=== PATIENT | female | born 1985 | race African-American/Black ===

== ENCOUNTER 2018-07-29 09:57 | Emergency (ER) | payer MEDICARE ==
[2018-07-29 10:46] LABS: Bilirubin Negative (Negative); Blood, Urine Moderate (Negative); Clarity CLEAR (Clear); Glucose, Urine (Dipstick) Negative (Negative); Leukocyte Negative (Negative); Nitrite Negative (Negative); Protein, Urine (Dipstick) Negative (Neg-Trace); Specific Gravity, Urine 1.016 (1.002-1.036); Urobilinogen 0.2 mg/dL (0.2-1.0)
[2018-07-29 10:49] LABS: Pregnancy Test - Urine (BHCG) Negative (Negative); Pregu Control Background? CLEAR/WHITE (CLR/WHITE); Pregu Control Bar Appear? YES (CONTROL BAR); Specific Gravity 1.016 (1.002-1.036)
[2018-07-29 10:50] LABS: Bacteria/HPF Rare-Few HPF (None Seen); Hyaline Casts/LPF 0-3 HYALINE CAST LPF (0-3 Hyaline); Pathc Cast-AUWi Flag 0.14 (0-2.49); Squamous Epithelial 0-3 HPF (0-3); WBC/HPF 0-3 HPF (0-3)
[2018-07-29] MEDS ORDERED: Ketorolac Tromethamine 60 MG/2 ML VIAL ONE (10:53)
[2018-07-29 10:59] LABS: RBC/HPF 0-3 HPF (0-3)
--- NOTE | 2018-07-29 12:10 | RAD ---
LUMBAR SPINE 3 VIEWS: Date: 07/29/18 HISTORY: Right hip pain. Low back pain. FINDINGS: Lumbar vertebra maintain normal height and alignment. Mild loss of disc space at L5-S1. No evidence o f spondylolisthesis or spondylolysis. IMPRESSION: No evidence of acute abnormality. POS: [facility]
--- NOTE | 2018-07-29 12:16 | RAD ---
RIGHT FEMUR 4 VIEWS: Date: 07/29/18 HISTORY: Pain right upper extremity. FINDINGS: No evidence of fracture. Femoral head and femoral neck appear unremarkable. No osseous abnormality se en. IMPRESSION: No evidence of acute abnormality. POS: [facility]
== END 2018-07-29 13:40 | disposition home or self-care (01) ==
LOC: ERS 09:57
DX: M54.5 Low back pain (principal); M25.551 Pain in right hip; B20 Human immunodeficiency virus [HIV] disease; F31.9 Bipolar disorder, unspecified; F20.9 Schizophrenia, unspecified; F17.210 Nicotine dependence, cigarettes, uncomplicated; Z79.899 Other long term (current) drug therapy
CPT/HCPCS: 72100; 81003; 81015; 81025; 87086; 96372; J1885

== ENCOUNTER 2018-08-31 16:43 | Emergency (ER) | payer MEDICARE ==
[2018-08-31] MEDS ORDERED: Dexamethasone 4 mg/ml Vial ONE (19:10)
[2018-08-31] MEDS ORDERED: Ketorolac Tromethamine 30 MG/ML VIAL ONE (19:13)
--- NOTE | 2018-08-31 19:22 | RAD ---
TWO VIEWS CHEST: Date: 08-31-18 Comparison: 04-29-17 History: Cough and congestion FINDINGS: Heart and mediastinal contours are stable. No pneumothorax, pleural fluid, focal consolidation or asuncion eolar edema. IMPRESSION: No acute findings. POS: [facility]
== END 2018-08-31 19:33 | disposition home or self-care (01) ==
LOC: ERS 16:43
DX: J40 Bronchitis, not specified as acute or chronic (principal); B20 Human immunodeficiency virus [HIV] disease; F31.9 Bipolar disorder, unspecified; F20.9 Schizophrenia, unspecified; F17.210 Nicotine dependence, cigarettes, uncomplicated; Z79.899 Other long term (current) drug therapy
CPT/HCPCS: 71046; 93005; 96372; J1100; J1885

== ENCOUNTER 2018-09-09 17:28 | Emergency (ER) | payer MEDICARE ==
[2018-09-09] MEDS ORDERED: Morphine 10 MG/ML VIAL ONE (18:04)
== END 2018-09-09 18:13 | disposition home or self-care (01) ==
LOC: ERS 17:28
DX: J06.9 Acute upper respiratory infection, unspecified (principal); M54.31 Sciatica, right side; Z71.6 Tobacco abuse counseling; F17.210 Nicotine dependence, cigarettes, uncomplicated; J45.909 Unspecified asthma, uncomplicated; B20 Human immunodeficiency virus [HIV] disease; F31.9 Bipolar disorder, unspecified; F20.9 Schizophrenia, unspecified; Z79.899 Other long term (current) drug therapy
CPT/HCPCS: 96372; 99406; J2270

== ENCOUNTER 2018-09-26 20:03 | Emergency (ER) | payer MEDICARE, MEDICAID ==
[2018-09-26] MEDS ORDERED: Acetaminophen/Codeine 30-300mg Tablet ONE (21:19)
== END 2018-09-26 21:34 | disposition home or self-care (01) ==
LOC: ERS 20:03
DX: G89.29 Other chronic pain (principal); M54.5 Low back pain; F31.9 Bipolar disorder, unspecified; F20.9 Schizophrenia, unspecified; F17.210 Nicotine dependence, cigarettes, uncomplicated; B20 Human immunodeficiency virus [HIV] disease; Z79.899 Other long term (current) drug therapy
CPT/HCPCS: 99283

== ENCOUNTER 2018-10-08 15:08 | Emergency (ER) | payer MEDICARE, MEDICAID ==
[2018-10-08] MEDS ORDERED: HYDROcodone/Acetaminophen 5/325 mg Tablet ONE (16:42)
[2018-10-08 16:51] LABS: Bilirubin Negative (Negative); Blood, Urine Negative (Negative); Clarity CLEAR (Clear); Glucose, Urine (Dipstick) Negative (Negative); Leukocyte Negative (Negative); Nitrite Negative (Negative); Protein, Urine (Dipstick) Negative (Neg-Trace); Specific Gravity, Urine 1.023 (1.002-1.036)
== END 2018-10-08 18:03 | disposition home or self-care (01) ==
LOC: ERS 15:08
DX: G62.9 Polyneuropathy, unspecified (principal); F31.9 Bipolar disorder, unspecified; F20.9 Schizophrenia, unspecified; F17.210 Nicotine dependence, cigarettes, uncomplicated; Z79.899 Other long term (current) drug therapy
CPT/HCPCS: 81003; 87804; 99283

== ENCOUNTER 2018-10-21 18:57 | Emergency (ER) | payer MEDICARE, MEDICAID ==
[2018-10-21] MEDS ORDERED: diphenhydrAMINE 50 MG/ML VIAL ONE (19:36)
[2018-10-21] MEDS ORDERED: methylPREDNISolone Sod Succ/PF 125 MG/2 ML VIAL ONE (19:36)
[2018-10-21] MEDS ORDERED: Famotidine/PF 20 mg/2ml Vial ONE (19:36)
--- NOTE | 2018-10-21 20:39 | ULT ---
RIGHT LOWER EXTREMITY VENOUS DOPPLER WITH SPECTRAL ANALYSIS AND COLOR FLOW EVALUATION: 10/21/18 HISTORY: Right lower extremity pain. FINDINGS: Burris scale, color flow, doppler evaluation, with spectral analysis of the right lower extremity venou s structures is performed with 2D imaging. The right lower extremity common femoral, superficial femo ral, popliteal, posterior tibial most proximal greater saphenous and profunda femoral veins are image d. There is normal lumen compressibility, flow and augmentation in the visualized deep venous structures of the right lower extremity. IMPRESSION: No evidence of a DVT involving the visualized deep venous structures right lower extremity. POS: [facility]
[2018-10-21] MEDS ORDERED: Ketorolac Tromethamine 30 MG/ML VIAL ONE (20:42)
[2018-10-21] MEDS ORDERED: Benztropine Mesylate 2 MG/2 ML VIAL IVP SCH (22:15)
== END 2018-10-21 22:30 | disposition home or self-care (01) ==
LOC: ERS 18:57
DX: G24.09 Other drug induced dystonia (principal); T43.4X5A Adverse effect of butyrophenone and thiothixene neuroleptics, initial encounter; G89.29 Other chronic pain; M79.604 Pain in right leg; F31.9 Bipolar disorder, unspecified; F20.9 Schizophrenia, unspecified; B20 Human immunodeficiency virus [HIV] disease; F17.210 Nicotine dependence, cigarettes, uncomplicated; Z79.891 Long term (current) use of opiate analgesic; Z79.899 Other long term (current) drug therapy; Z79.1 Long term (current) use of non-steroidal anti-inflammatories (NSAID); Z79.82 Long term (current) use of aspirin
CPT/HCPCS: 96374; 96375; J0515; J1200; J1885; J2930; S0028

== ENCOUNTER 2018-10-30 14:54 | Outpatient (CLI) | payer MEDICARE, MEDICAID ==
--- NOTE | 2018-10-30 15:42 | RAD ---
LUMBAR SPINE SERIES THREE VIEWS INCLUDING FLEXION AND EXTENSION: History: Low back pain. FINDINGS: The vertebral bodies appear normal in height. Disc spaces all appear relatively well preserved. There is limited motion in flexion or extension. I do not see any abnormal motion. IMPRESSION: Unremarkable flexion and extension views. POS: [facility]
== END 2018-10-30 14:55 | disposition home or self-care (01) ==
LOC: TBSIIMAG 14:54
PROVIDERS: ATTEND Neurological Surgery
DX: M51.16 Intervertebral disc disorders with radiculopathy, lumbar region (principal)
CPT/HCPCS: 72100

== ENCOUNTER 2018-11-10 23:00 | Emergency (ER) | payer MEDICAID, MEDICARE ==
[2018-11-11] MEDS ORDERED: Ketorolac Tromethamine 60 MG/2 ML VIAL ONE
[2018-11-11 00:15] LABS: #Basophils 0.1 thou/uL (0.0-0.2); #Eosinphils 0.2 thou/uL (0.0-0.7); #Lymphocytes 2.9 thou/uL (1.20-3.40); #Monocytes 0.5 thou/uL (0.11-0.59); #Neutrophils 2.2 thou/uL (1.40-6.50); %Basophils 1.2 % (0.0-1.0); %Eosinophils 3.4 % (0.0-10.0); %Lymphocytes 49.5 % (21.0-51.0); %Monocytes 8.5 % (0.0-10.0); %Neutrophils 37.4 % (42.0-75.0); Hemoglobin 14.3 g/dL (12.0-16.0); Mean Corpuscular HGB CONC 32.9 g/dL (32.0-36.0); Mean Corpuscular Hemoglobin 33.3 pg (27.0-31.0); RBC Distribution Width 12.6 % (11.5-14.5); Red Blood Cell (RBC) Count 4.29 mill/uL (4.20-5.40); White Blood Cell (WBC) Count 5.9 thou/uL (4.8-10.8)
[2018-11-11 00:17] LABS: BHCG - Serum Negative (NEGATIVE); Pregs Control Background? CLEAR/WHITE (CLR/WHITE); Pregs Control Bar Appear? YES (CONTROL BAR)
[2018-11-11 00:17] LABS: Bilirubin Small (Negative); Blood, Urine Negative (Negative); Clarity CLEAR (Clear); Glucose, Urine (Dipstick) 250 mg/dL (Negative); Leukocyte Negative (Negative); Nitrite Negative (Negative); Protein, Urine (Dipstick) Negative (Neg-Trace); Specific Gravity, Urine 1.025 (1.002-1.036); pH, Urine 6.5 (5.0-9.0)
[2018-11-11 00:21] LABS: Mean Platelet Volume 9.2 fL (7.4-10.4); Platelet Count 228 thou/uL (130-400)
[2018-11-11 00:29] LABS: ALT (SGPT) 17 U/L (8-55); AST (SGOT) 18 U/L (5-34); Albumin 4.2 g/dL (3.5-5.0); Alkaline Phosphatase 102 U/L (40-150); Anion Gap 12 mmol/L (10-20); BUN (Urea Nitrogen) 11 mg/dL (7.0-18.7); Bilirubin, Total 0.3 mg/dL (0.2-1.2); Calc. Creatinine Clearance 0 mL/min (70-130); Calcium 9.3 mg/dL (7.8-10.44); Carbon Dioxide 22 mmol/L (22-29); Chloride 105 mmol/L (98-107); Estimated GFR-MDRD 90; Globulin 4.2 g/dL (2.4-3.5); Glucose 188 mg/dL (70-105); Potassium 4.1 mmol/L (3.5-5.1); Protein, Total 8.4 g/dL (6.0-8.3); Sodium 135 mmol/L (136-145)
[2018-11-11] MEDS ORDERED: Diazepam 5 MG TAB ONE (01:07)
[2018-11-11] MEDS ORDERED: HYDROcodone/Acetaminophen 5/325 mg Tablet ONE (01:07)
== END 2018-11-11 01:12 | disposition home or self-care (01) ==
LOC: ERS 23:00
DX: G89.29 Other chronic pain (principal); M54.5 Low back pain; B20 Human immunodeficiency virus [HIV] disease; F31.9 Bipolar disorder, unspecified; F20.9 Schizophrenia, unspecified; F17.210 Nicotine dependence, cigarettes, uncomplicated; Z79.899 Other long term (current) drug therapy
CPT/HCPCS: 36415; 80053; 81003; 84703; 85025; 96372; J1885

== ENCOUNTER 2018-11-21 00:14 | Outpatient (CLI) | payer MEDICARE ==
[2018-11-21 12:07] LABS: Hemoglobin 13.7 g/dL (12.0-16.0); Mean Corpuscular HGB CONC 31.9 g/dL (32.0-36.0); Mean Corpuscular Hemoglobin 32.7 pg (27.0-31.0); Mean Platelet Volume 9.1 fL (7.4-10.4); Platelet Count 271 thou/uL (130-400); RBC Distribution Width 12.3 % (11.5-14.5); White Blood Cell (WBC) Count 6.4 thou/uL (4.8-10.8)
[2018-11-21 12:09] LABS: PTT 27.6 SEC (22.9-36.1); Prothrombin Time 12.9 SEC (12.0-14.7)
== END 2018-11-21 00:15 | disposition home or self-care (01) ==
LOC: LABBT 00:14
PROVIDERS: ATTEND Neurological Surgery
DX: Z01.812 Encounter for preprocedural laboratory examination (principal); M51.26 Other intervertebral disc displacement, lumbar region
CPT/HCPCS: 85027; 85610; 85730

== ENCOUNTER 2018-11-23 10:21 | Day surgery (SDC) | payer MEDICARE ==
[2018-11-21 11:08] VITALS: BMI 39.9
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
[2018-11-23] MEDS ORDERED: Bupivacaine HCl 0.5%/Epinephrine 1:200,000/PF 30 ml Vial ONE (12:53)
[2018-11-23] MEDS ORDERED: Sodium Chloride 0.9% 20 ML ONE (12:54)
[2018-11-23] MEDS ORDERED: Thrombin 5000 UNITS/5 ML VIAL ONE (12:54)
[2018-11-23] MEDS ORDERED: Fentanyl 100 MCG/2 ML VIAL ONE ×4 (12:57→16:10)
--- NOTE | 2018-11-23 16:01 | OP ---
DATE OF PROCEDURE: 11/23/2018 SALES ACCOUNT REPRESENTATIVE: Dorothy Wren PA-C. PREOPERATIVE INDICATION: Treat pain and prevent neurological deterioration. PREOPERATIVE DIAGNOSIS: Lumbosacral intervertebral disk herniation, central, with bilateral S1 radiculopathies. POSTOPERATIVE DIAGNOSIS: Lumbosacral intervertebral disk herniation, central, with bilateral S1 radiculopathies. PROCEDURE PERFORMED: Decompressive laminectomy, medial facetectomy, foraminotomy, microdiskectomy L5-S1, and operative microscope. PREOPERATIVE MEDICATION: Ancef 2 g IV. DRAIN NUMBER: Zero. DRAIN TYPE: None. DESCRIPTION OF PROCEDURE: The patient was brought to the operating room. General endotracheal anesthesia was induced. The patient was carefully positioned on the operating table prone with her chest and hips supported by gel-filled chest rolls. A lateral fluoro radiograph was used to plan our incision. The lumbar skin was sterilely prepped and draped. We opened with a 10 blade knife and controlled bleeding with bipolar and monopolar cautery. We used monopolar cautery to dissect through the subcutaneous tissues to the thoracodorsal fascia. We incised the fascia in the midline and we reflected the paraspinal muscles off the spinous process and laminae of L5 and S1. A self-retaining retractor was placed and a lateral fluoro radiograph confirmed the levels upon which we were operating. We then used an Adson rongeur to remove the L5 spinous process on the top of the sacral spinous process. Kerrison rongeurs were used to fashion a laminectomy. The operative microscope was brought into the field. Under microscopic magnification and using microsurgical techniques, we removed the yellow ligament at the interspace, performed a partial laminectomy of the superior portion of the sacral lamina. We widened our L5 laminectomy defect by performing medial facetectomies. We made sure Schmidt ball probe could pass through the lateral recess and out the foramen with each of the S1 nerve roots. We found that the common thecal sac and all of the nerve roots across the lumbosacral interspace were stretched posteriorly by a central intervertebral disk herniation. The herniation presented itself closest to the surface under the axilla of the S1 nerve root on the patient's right side. We carefully protected the nerve roots and then incised the protruding disk, disk contents came out under pressure. Removed multiple loose fragments of disk from the ventral epidural space as well as probing into the interspace. Loose fragments were removed until the remainder of the disk was firmly attached to the endplates. We then carefully inspected the S1 nerve roots on both sides. The right-sided S1 nerve root was well decompressed. Under the ventral aspect of the shoulder of the S1 nerve root on the left side, there was a small separate intervertebral disk sequestered there. This was removed in a piecemeal fashion as well. At the completion of that discectomy, the S1 nerve root on the left side was well decompressed and mobile. We irrigated copiously with bacitracin irrigation. We controlled ventral epidural bleeding with gentle bipolar cautery. We placed a pledget. We placed a small fat autograft into the defect of the annulus fibrosus in the center of the canal. We irrigated copiously with bacitracin irrigation. We treated the wound with vancomycin powder and we closed in anatomical layers. This was a clean case, no contamination. Job ID: [id number]
[2018-11-23] MEDS ORDERED: Dexamethasone 20 MG/5 ML VIAL ONE (16:31)
[2018-11-23] MEDS ORDERED: Rocuronium Bromide 10 MG/ML (10ML VIAL) ONE (16:31)
[2018-11-23] MEDS ORDERED: PHENYLEPHRINE-NS 100 MCG/ML 10 ML SYRINGE ONE (16:31)
[2018-11-23] MEDS ORDERED: Glycopyrrolate 0.2 MG/ML 5 ML SYRINGE ONE (16:31)
[2018-11-23] MEDS ORDERED: Ondansetron PF 4 MG/2 ML Vial ONE (16:31)
[2018-11-23] MEDS ORDERED: PROPOFOL 200 MG/20 ML VIAL ONE (16:31)
[2018-11-23] MEDS ORDERED: Lidocaine 1% PF 5 ML VIAL ONE (16:31)
[2018-11-23] MEDS ORDERED: Ketorolac Tromethamine 30 MG/ML VIAL ONE (16:31)
[2018-11-23] MEDS ORDERED: HYDROcodone/Acetaminophen 5/325 mg Tablet ONE (17:41)
== END 2018-11-23 18:30 | disposition home or self-care (01) ==
LOC: SDC 10:21
PROVIDERS: ATTEND Neurological Surgery
PROC: 01NB0ZZ Release Lumbar Nerve, Open Approach (ICD-10-PCS; principal; 2018-11-23)
PROC: 0ST20ZZ Resection of Lumbar Vertebral Disc, Open Approach (ICD-10-PCS; 2018-11-23)
DX: M51.17 Intervertebral disc disorders with radiculopathy, lumbosacral region (principal); F31.9 Bipolar disorder, unspecified; F20.9 Schizophrenia, unspecified; F17.210 Nicotine dependence, cigarettes, uncomplicated; Z21 Asymptomatic human immunodeficiency virus [HIV] infection status; Z79.899 Other long term (current) drug therapy; Z88.8 Allergy status to other drugs, medicaments and biological substances
CPT/HCPCS: 76000; J0670; J1100; J1885; J2001; J2405; J2704; J3010; J3370; J3490

== ENCOUNTER 2018-12-10 20:51 | Emergency (ER) | payer MEDICAID, MEDICARE ==
[2018-12-10] MEDS ORDERED: hydrOXYzine 25 MG TAB ONE (22:55)
== END 2018-12-10 23:30 | disposition home or self-care (01) ==
LOC: ERS 20:51
DX: F41.9 Anxiety disorder, unspecified (principal); F31.9 Bipolar disorder, unspecified; F20.9 Schizophrenia, unspecified; B20 Human immunodeficiency virus [HIV] disease; F17.210 Nicotine dependence, cigarettes, uncomplicated; Z79.899 Other long term (current) drug therapy; Z79.891 Long term (current) use of opiate analgesic
CPT/HCPCS: 93005

== ENCOUNTER 2019-01-17 10:49 | Emergency (ER) | payer MEDICARE ==
[2019-01-17] MEDS ORDERED: Ketorolac Tromethamine 30 MG/ML VIAL ONE (12:13)
== END 2019-01-17 12:39 | disposition home or self-care (01) ==
LOC: ERS 10:49
DX: H66.92 Otitis media, unspecified, left ear (principal); F31.9 Bipolar disorder, unspecified; F20.9 Schizophrenia, unspecified; F17.210 Nicotine dependence, cigarettes, uncomplicated; Z79.899 Other long term (current) drug therapy
CPT/HCPCS: 96372; J1885

== ENCOUNTER 2019-03-04 13:50 | Emergency (ER) | payer MEDICARE | END 2019-03-04 14:47 | disposition home or self-care (01) | LOC: ERS 13:50 | DX: G24.09 Other drug induced dystonia (principal); T43.595A Adverse effect of other antipsychotics and neuroleptics, initial encounter; F31.9 Bipolar disorder, unspecified; F20.9 Schizophrenia, unspecified; F17.210 Nicotine dependence, cigarettes, uncomplicated | CPT/HCPCS: 99284 ==

== ENCOUNTER 2019-03-17 16:40 | Emergency (ER) | payer MEDICARE ==
[2019-03-17] MEDS ORDERED: Dexamethasone 10 MG/ML VIAL ONE (17:29)
[2019-03-17] MEDS ORDERED: diphenhydrAMINE 25 MG CAP ONE (17:29)
== END 2019-03-17 17:35 | disposition home or self-care (01) ==
LOC: ERS 16:40
DX: T78.40XA Allergy, unspecified, initial encounter (principal); F41.9 Anxiety disorder, unspecified; F31.9 Bipolar disorder, unspecified; F17.210 Nicotine dependence, cigarettes, uncomplicated; Z79.899 Other long term (current) drug therapy
CPT/HCPCS: 99283; J1100; Q0163

== ENCOUNTER 2019-11-17 19:42 | Emergency (ER) | payer MEDICARE ==
[2019-11-17] MEDS ORDERED: Lidocaine 1% w/Epinephrine 1:100K 20 ML VIAL ONE (21:06)
[2019-11-17] MEDS ORDERED: HYDROcodone/Acetaminophen 5/325 mg Tablet ONE (21:10)
[2019-11-17] MEDS ORDERED: Ibuprofen 800 MG TAB ONE (22:18)
== END 2019-11-17 23:36 | disposition home or self-care (01) ==
LOC: ERS 19:42
DX: L02.412 Cutaneous abscess of left axilla (principal); F41.9 Anxiety disorder, unspecified; F31.9 Bipolar disorder, unspecified; F20.9 Schizophrenia, unspecified; F17.210 Nicotine dependence, cigarettes, uncomplicated; Z71.6 Tobacco abuse counseling
CPT/HCPCS: 10060; 99406